=== PATIENT | female | born 1935 | race Asian ===

== ENCOUNTER 2020-11-08 16:37 | Emergency (ER) | payer MEDICARE, MEDICAID ==
[~2020-11-08] VITALS: Ht 154.9 cm; Wt 50.0 kg
[2020-11-08] MEDS ORDERED: LORAZEPAM 2MG/ML CPJ IM ONE (17:00)
[2020-11-08] MEDS ORDERED: SODIUM CHLORIDE 0.9% 500 ML IV ONE (17:15)
[2020-11-08] MEDS ORDERED: OLANZAPINE 10 MG/VIAL IM ONE (17:30)
[2020-11-08 19:25] LABS: BASOPHILS % 0.6 % (0.0-2.0); EOSINOPHILS % 0.2 % (0.0-5.0); HEMOGLOBIN. 14.4 g/dL (12.0-16.0); LYMPHOCYTES % 21.9 % (20.0-50.0); MEAN CORPUSCULAR HEMOGLOBIN 31.8 pg (28.0-32.0); MEAN CORPUSCULAR VOLUME 90.5 fL (81.0-99.0); MEAN PLATELET VOLUME 8.7 fl (7.4-10.4); MONOCYTES % 7.1 % (2.0-8.0); NEUTROPHILS % 70.2 % (40.0-76.0); PLATELET 144 x1000/uL (130-400); RED BLOOD CELL COUNT 4.53 mill/uL (4.2-5.4); RED CELL DISTRIBUTION WIDTH 13.1 % (11.6-14.6)
[2020-11-08 19:39] LABS: CHLORIDE 109 mEq/L (98-107)
[2020-11-08 19:43] LABS: ETHANOL BLOOD < 10 mg/dL
[2020-11-08 19:47] LABS: CREATINE KINASE 524 IU/L (26-192)
[2020-11-08 21:58] LABS: CLARITY URINE CLEAR (CLEAR); COLOR URINE YELLOW (YELLOW); KETONES URINE 1+ (NEGATIVE); LEUKOCYTE ESTERASE URINE 1+ (NEGATIVE); NITRITE URINE NEGATIVE (NEGATIVE); OCCULT BLOOD URINE NEGATIVE (NEGATIVE); PH URINE 5.5 (4.5-8.0); PROTEIN URINE NEGATIVE (NEGATIVE); SPECIFIC GRAVITY URINE 1.022 (1.005-1.030)
[2020-11-08 22:07] LABS: *AMPHETAMINES SCREEN URINE NEGATIVE (NEGATIVE); *BARBITURATES SCREEN URINE NEGATIVE (NEGATIVE); *BENZODIAZEPINES SCREEN URINE NEGATIVE (NEGATIVE); *COCAINE SCREEN URINE NEGATIVE (NEGATIVE); CANNABINOID URINE SCREEN NEGATIVE (NEGATIVE); METHADONE URINE SCREEN NEGATIVE (NEGATIVE); PHENCYCLIDINE URINE SCREEN NEGATIVE (NEGATIVE)
[2020-11-08 22:08] LABS: OPIATES URINE SCREEN NEGATIVE (NEGATIVE)
[2020-11-08] MEDS ORDERED: DEXT 5%/0.45% NACL KCL 20MEQ/L 1,000 ML IV ONE (22:45)
[2020-11-08] MEDS ORDERED: CEFTRIAXONE 1 G PREMIX 50 ML IV ONE (22:45)
[2020-11-09] MEDS: NITROFURANTOIN 100MG M/M CAPSULE PO SCH ×2 (09:30→22:34)
[2020-11-09] MEDS ORDERED: LORAZEPAM 2MG/ML CPJ IV ONE ×2 (11:45→18:45)
[2020-11-09] MEDS ORDERED: LORAZEPAM 2MG/ML CPJ IM ONE (18:45)
[2020-11-10 06:00] VITALS: BP 121/71
== END 2020-11-10 06:04 | disposition home or self-care (01) ==
LOC: ER 16:37
DX: F23 Brief psychotic disorder (principal); N39.0 Urinary tract infection, site not specified; E86.0 Dehydration; I10 Essential (primary) hypertension; Z75.1 Person awaiting admission to adequate facility elsewhere; Z20.822 Contact with and (suspected) exposure to COVID-19; Z78.1 Physical restraint status; Z85.038 Personal history of other malignant neoplasm of large intestine
CPT/HCPCS: 36415; 70450; 71045; 80053; 80305; 80307; 80320; 81003; 82550; 83690; 84443; 84484; 85025; 87086; 93005; 96361; 96365; 96372; 96375; 99285; C9803; J0696; J2060; J3490; J7040; U0005; G0480